=== PATIENT | female | born 1960 | race Caucasian/White ===

== ENCOUNTER → 2020-04-23 | Outpatient (CLI) | payer MEDICAID ==
[~2020-04-23] MED LIST: AGM875T PO; ASP81TEC PO; CALC500T7 PO; CALC667C; CHOL200018 PO; CHOL500011 PO; CPR500T PO; FISH1CAP15 PO; HYDR25TA4 PO; LORA10TA7 PO; NAPR-689 PO; TLT2T PO; TRAM-21 PO; [UNRECOGNIZED DRUG - REMARK]; oscal; vitamin e
--- NOTE | 2020-04-23 11:41 | Diagnostic Imaging Report ---
EXAMINATION: Chest 2 views. HISTORY: Fall. Left-sided rib pain. Shortness of breath. COMPARISON: 07/20/2014. FINDINGS: The lung volumes are normal. No focal consolidation is seen. No large pleural effusion or pneumothorax is seen. The cardiomediastinal silhouette is normal in size and contour. No acute osseous abnormality is seen. IMPRESSION: 1. No acute pleuroparenchymal process. Dictated by: Dictated on workstation # [id number]
--- NOTE | 2020-04-23 11:44 | Diagnostic Imaging Report ---
CLINICAL HISTORY: Fall. Left-sided rib pain. COMPARISON: 07/20/2014. TECHNIQUE: Three views of the left ribs. FINDINGS: No acute displaced left-sided rib fractures are seen. No evidence of pneumothorax or pleural effusion. IMPRESSION: 1. No acute displaced left-sided rib fractures. Dictated by: Dictated on workstation # [id number]
== END ==
LOC: RAD 10:35
PROVIDERS: ATTEND Nurse Practitioner
DX: R07.81 Pleurodynia (principal); R06.02 Shortness of breath
CPT/HCPCS: 71046; 71100

== ENCOUNTER → 2020-04-24 | Outpatient (CLI) | payer MEDICAID | LOC: LABNPT 08:09 | PROVIDERS: ATTEND Nurse Practitioner | DX: R50.9 Fever, unspecified (principal); R53.83 Other fatigue; Z20.828 Contact with and (suspected) exposure to other viral communicable diseases | CPT/HCPCS: 87635 ==

== ENCOUNTER 2020-06-21 10:46 | Outpatient (RCR) | payer MEDICAID | END 2020-06-25 | disposition home or self-care (01) | PROVIDERS: ATTEND Nurse Practitioner | DX: R53.81 Other malaise (principal) ==

== ENCOUNTER 2020-07-23 13:45 | Outpatient (RCR) | payer MEDICAID ==
[2020-06-26 09:59] LABS: BASOPHILS % (AUTO) 1 % (0-10); EOSINOPHILS # (AUTO) 0.1 10^3/uL (0.0-0.3); EOSINOPHILS % (AUTO) 2 % (0-10); HEMATOCRIT 35 % (35-52); HEMOGLOBIN 11.6 g/dL (11.5-16.0); LYMPHOCYTES # (AUTO) 1.4 10^3/uL (1.0-4.0); LYMPHOCYTES % (AUTO) 28 % (12-44); MEAN CORPUSCULAR HEMOGLOBIN 30 pg (25-34); MEAN CORPUSCULAR HGB CONC 33 g/dL (32-36); MEAN CORPUSCULAR VOLUME 91 fL (80-99); MONOCYTES # (AUTO) 0.3 10^3/uL (0.0-1.0); MONOCYTES % (AUTO) 6 % (0-12); NEUTROPHILS # (AUTO) 3.2 10^3/uL (1.8-7.8); NEUTROPHILS % (AUTO) 63 % (42-75); PLATELET COUNT 202 10^3/uL (130-400)
[2020-06-26 10:14] LABS: ALANINE AMINOTRANSFERASE 13 U/L (0-55); ALBUMIN 3.6 GM/DL (3.2-4.5); ALKALINE PHOSPHATASE 96 U/L (40-136); BILIRUBIN,TOTAL 0.4 MG/DL (0.1-1.0); BUN/CREATININE RATIO 10; CALCIUM 8.4 MG/DL (8.5-10.1); CARBON DIOXIDE 25 MMOL/L (21-32); CHLORIDE 109 MMOL/L (98-107); CREATININE SERUM 0.84 MG/DL (0.60-1.30); GFR ESTIMATED > 60; GLUCOSE 104 MG/DL (70-105); POTASSIUM 3.5 MMOL/L (3.6-5.0); SODIUM 143 MMOL/L (135-145); TOTAL PROTEIN 6.2 GM/DL (6.4-8.2)
[2020-07-23 13:47] LABS: BASOPHILS % (AUTO) 1 % (0-10); EOSINOPHILS # (AUTO) 0.1 10^3/uL (0.0-0.3); EOSINOPHILS % (AUTO) 1 % (0-10); HEMATOCRIT 35 % (35-52); HEMOGLOBIN 11.8 g/dL (11.5-16.0); LYMPHOCYTES % (AUTO) 33 % (12-44); MEAN CORPUSCULAR HEMOGLOBIN 30 pg (25-34); MEAN CORPUSCULAR HGB CONC 34 g/dL (32-36); MEAN CORPUSCULAR VOLUME 90 fL (80-99); MEAN PLATELET VOLUME 11.4 fL (9.0-12.2); MONOCYTES # (AUTO) 0.4 10^3/uL (0.0-1.0); MONOCYTES % (AUTO) 7 % (0-12); NEUTROPHILS # (AUTO) 3.4 10^3/uL (1.8-7.8); NEUTROPHILS % (AUTO) 58 % (42-75); PLATELET COUNT 222 10^3/uL (130-400); WHITE BLOOD COUNT 5.9 10^3/uL (4.3-11.0)
[2020-07-23 14:05] LABS: ALANINE AMINOTRANSFERASE 23 U/L (0-55); ALBUMIN 3.6 GM/DL (3.2-4.5); ALKALINE PHOSPHATASE 93 U/L (40-136); BILIRUBIN,TOTAL 0.3 MG/DL (0.1-1.0); BUN/CREATININE RATIO 14; CALCIUM 8.3 MG/DL (8.5-10.1); CARBON DIOXIDE 23 MMOL/L (21-32); CHLORIDE 110 MMOL/L (98-107); GFR ESTIMATED > 60; GLUCOSE 120 MG/DL (70-105); POTASSIUM 3.6 MMOL/L (3.6-5.0); SODIUM 142 MMOL/L (135-145); TOTAL PROTEIN 6.3 GM/DL (6.4-8.2)
== END 2020-08-25 | disposition home or self-care (01) ==
LOC: ONC 13:45
PROVIDERS: ATTEND Internal Medicine Hematology & Oncology
DX: C71.2 Malignant neoplasm of temporal lobe (principal); I10 Essential (primary) hypertension; E78.00 Pure hypercholesterolemia, unspecified; Z98.890 Other specified postprocedural states; Z90.711 Acquired absence of uterus with remaining cervical stump
CPT/HCPCS: 80053; 85025; 99213; 99214

== ENCOUNTER → 2020-07-29 | Outpatient (CLI) | payer MEDICAID ==
[~2020-07-29] MED LIST changes: +GADOBUTROL 10 MMOL/10 ML (GADAVIST) VIAL IV ONE
--- NOTE | 2020-07-29 12:39 | Diagnostic Imaging Report ---
PROCEDURE: MR imaging of the brain with and without contrast. TECHNIQUE: Multiplanar, multisequence MR imaging of the brain was performed with and without contrast. INDICATION: History of brain tumor resection 08/01/2019. No other details are provided. COMPARISON: None. FINDINGS: There are postoperative findings right temporal craniotomy and resection bed in the anterior right temporal lobe. Abnormal T2 signal extends from the postoperative changes into the posterior right frontal lobe and to the splenium of the corpus callosum. There is no suspicious nodular enhancement in the region of the postoperative changes. There is a punctate focus of enhancement in the posterior right temporal lobe measuring 0.2 cm. No other abnormal intracranial enhancement. Mild to moderate generalized cerebral and cerebellar parenchymal volume loss. No restricted water diffusion. No hemosiderin deposition or evidence of intracranial hemorrhage. Normal morphology of the major midline structures, sella, fossa and cerebellar pontine angle. Normal intracranial flow voids. No hydrocephalus or extra-axial fluid collections. The orbits are negative on this nondedicated exam. Paranasal sinuses and mastoids are clear. IMPRESSION: Postoperative findings of right temporal craniotomy and resection bed in the anterior right temporal lobe. Abnormal T2 signal extends in the posterior right frontal lobe and to the splenium of the corpus callosum. Single punctate focus of enhancement in the posterior right temporal lobe measuring 0.2 cm. No priors are available for comparison. Pathology of the reported resected brain tumor was not provided. Dictated by: Dictated on workstation # [id number]
== END ==
LOC: RAD 11:00
PROVIDERS: ATTEND Nurse Practitioner Adult Health
DX: C71.9 Malignant neoplasm of brain, unspecified (principal)
CPT/HCPCS: 70553

== ENCOUNTER 2020-09-24 10:57 | Outpatient (RCR) | payer MEDICAID ==
[~2020-09-24 10:57] MED LIST changes: -GADOBUTROL 10 MMOL/10 ML (GADAVIST) VIAL IV ONE
== END 2020-09-25 | disposition home or self-care (01) ==
PROVIDERS: ATTEND Nurse Practitioner
DX: R53.81 Other malaise (principal); C71.9 Malignant neoplasm of brain, unspecified

== ENCOUNTER 2020-09-26 10:22 | Outpatient (RCR) | payer MEDICAID | END 2020-09-26 12:00 | disposition home or self-care (01) | PROVIDERS: ATTEND Nurse Practitioner | DX: R53.81 Other malaise (principal); C71.9 Malignant neoplasm of brain, unspecified ==

== ENCOUNTER 2020-10-04 13:27 | Outpatient (RCR) | payer MEDICAID | END 2020-11-03 | disposition home or self-care (01) | LOC: CR3 13:27 | PROVIDERS: ATTEND Nurse Practitioner | DX: Z29.8 Encounter for other specified prophylactic measures (principal) ==

== ENCOUNTER → 2020-10-15 | Outpatient (CLI) | payer MEDICAID ==
[~2020-10-15] MED LIST changes: +GADOBUTROL 10 MMOL/10 ML (GADAVIST) VIAL IV ONE
--- NOTE | 2020-10-15 17:41 | Diagnostic Imaging Report ---
PROCEDURE: MR imaging of the brain with and without contrast. TECHNIQUE: Multiplanar, multisequence MR imaging of the brain was performed with and without contrast. INDICATION: Previous brain tumor resection. This is a scheduled follow-up with no current complaint. It is compared with exam dated 07/29/2020. FINDINGS: Some encephalomalacia in the cortex of the right temporal lobe posterosuperiorly unchanged. T2 and FLAIR weighted hyperintensity tracking along the right temporoparietal white matter identical in morphology and distribution from the prior. No resultant mass effect. No distortion of the ventricular contour. No displacement of the midline structures. No abnormal diffusion restriction. There were no findings of hemorrhage. Otherwise, there is some scattered chronic periventricular white matter small vessel sequelae stable and a tiny peripheral cortical punctate focus of T2 signal along the right occipital lobe posteriorly. On today's exam after contrast was administered no abnormal or suspicious enhancement shown. The left hemisphere unremarkable. The brainstem and posterior fossa unremarkable. The orbital contents and paranasal sinuses nonacute. IMPRESSION: 1. Stable post-therapeutic encephalomalacia and unchanged white matter hyperintensities without a resultant mass effect and no detectable infarct, hemorrhage or appreciable abnormal enhancement. Dictated by: Dictated on workstation # [id number]
== END ==
LOC: RAD 09:59
PROVIDERS: ATTEND Nurse Practitioner Adult Health
DX: C71.9 Malignant neoplasm of brain, unspecified (principal)
CPT/HCPCS: 70553

== ENCOUNTER 2020-11-19 15:05 | Outpatient (RCR) | payer MEDICAID ==
[2020-08-26 13:17] LABS: BASOPHILS % (AUTO) 1 % (0-10); EOSINOPHILS % (AUTO) 0 % (0-10); HEMATOCRIT 36 % (35-52); HEMOGLOBIN 12.1 g/dL (11.5-16.0); LYMPHOCYTES # (AUTO) 1.7 10^3/uL (1.0-4.0); LYMPHOCYTES % (AUTO) 20 % (12-44); MEAN CORPUSCULAR HEMOGLOBIN 30 pg (25-34); MEAN CORPUSCULAR HGB CONC 34 g/dL (32-36); MEAN CORPUSCULAR VOLUME 90 fL (80-99); MONOCYTES # (AUTO) 0.6 10^3/uL (0.0-1.0); MONOCYTES % (AUTO) 8 % (0-12); NEUTROPHILS % (AUTO) 71 % (42-75); PLATELET COUNT 212 10^3/uL (130-400); WHITE BLOOD COUNT 8.4 10^3/uL (4.3-11.0)
[2020-08-26 13:36] LABS: ALANINE AMINOTRANSFERASE 16 U/L (0-55); ALBUMIN 3.8 GM/DL (3.2-4.5); ALKALINE PHOSPHATASE 87 U/L (40-136); BILIRUBIN,TOTAL 0.4 MG/DL (0.1-1.0); BUN/CREATININE RATIO 11; CALCIUM 8.3 MG/DL (8.5-10.1); CARBON DIOXIDE 26 MMOL/L (21-32); CHLORIDE 108 MMOL/L (98-107); CREATININE SERUM 0.81 MG/DL (0.60-1.30); GFR ESTIMATED > 60; GLUCOSE 106 MG/DL (70-105); POTASSIUM 3.2 MMOL/L (3.6-5.0); SODIUM 142 MMOL/L (135-145); TOTAL PROTEIN 6.6 GM/DL (6.4-8.2)
[2020-09-23 13:01] LABS: BASOPHILS % (AUTO) 1 % (0-10); EOSINOPHILS % (AUTO) 1 % (0-10); HEMATOCRIT 39 % (35-52); HEMOGLOBIN 12.7 g/dL (11.5-16.0); LYMPHOCYTES # (AUTO) 1.6 10^3/uL (1.0-4.0); LYMPHOCYTES % (AUTO) 29 % (12-44); MEAN CORPUSCULAR HEMOGLOBIN 30 pg (25-34); MEAN CORPUSCULAR HGB CONC 33 g/dL (32-36); MEAN CORPUSCULAR VOLUME 90 fL (80-99); MEAN PLATELET VOLUME 11.1 fL (9.0-12.2); MONOCYTES # (AUTO) 0.3 10^3/uL (0.0-1.0); MONOCYTES % (AUTO) 6 % (0-12); NEUTROPHILS # (AUTO) 3.5 10^3/uL (1.8-7.8); NEUTROPHILS % (AUTO) 64 % (42-75); PLATELET COUNT 202 10^3/uL (130-400); WHITE BLOOD COUNT 5.5 10^3/uL (4.3-11.0)
[2020-09-23 13:25] LABS: ALANINE AMINOTRANSFERASE 16 U/L (0-55); ALBUMIN 3.9 GM/DL (3.2-4.5); ALKALINE PHOSPHATASE 89 U/L (40-136); BILIRUBIN,TOTAL 0.4 MG/DL (0.1-1.0); BUN/CREATININE RATIO 13; CALCIUM 8.7 MG/DL (8.5-10.1); CARBON DIOXIDE 26 MMOL/L (21-32); CHLORIDE 105 MMOL/L (98-107); CREATININE SERUM 0.79 MG/DL (0.60-1.30); GFR ESTIMATED > 60; GLUCOSE 104 MG/DL (70-105); POTASSIUM 3.9 MMOL/L (3.6-5.0); SODIUM 140 MMOL/L (135-145); TOTAL PROTEIN 6.5 GM/DL (6.4-8.2)
[2020-10-22 13:02] LABS: BASOPHILS % (AUTO) 1 % (0-10); EOSINOPHILS # (AUTO) 0.1 10^3/uL (0.0-0.3); EOSINOPHILS % (AUTO) 1 % (0-10); HEMATOCRIT 37 % (35-52); HEMOGLOBIN 12.2 g/dL (11.5-16.0); LYMPHOCYTES # (AUTO) 1.3 10^3/uL (1.0-4.0); LYMPHOCYTES % (AUTO) 26 % (12-44); MEAN CORPUSCULAR HEMOGLOBIN 30 pg (25-34); MEAN CORPUSCULAR HGB CONC 33 g/dL (32-36); MEAN CORPUSCULAR VOLUME 89 fL (80-99); MEAN PLATELET VOLUME 10.7 fL (9.0-12.2); MONOCYTES # (AUTO) 0.4 10^3/uL (0.0-1.0); MONOCYTES % (AUTO) 7 % (0-12); NEUTROPHILS # (AUTO) 3.4 10^3/uL (1.8-7.8); NEUTROPHILS % (AUTO) 65 % (42-75); PLATELET COUNT 216 10^3/uL (130-400); WHITE BLOOD COUNT 5.2 10^3/uL (4.3-11.0)
[2020-10-22 13:20] LABS: ALANINE AMINOTRANSFERASE 19 U/L (0-55); ALBUMIN 3.8 GM/DL (3.2-4.5); ALKALINE PHOSPHATASE 105 U/L (40-136); BILIRUBIN,TOTAL 0.3 MG/DL (0.1-1.0); BUN/CREATININE RATIO 10; CALCIUM 9.2 MG/DL (8.5-10.1); CARBON DIOXIDE 26 MMOL/L (21-32); CHLORIDE 107 MMOL/L (98-107); CREATININE SERUM 0.84 MG/DL (0.60-1.30); GFR ESTIMATED > 60; GLUCOSE 109 MG/DL (70-105); POTASSIUM 3.9 MMOL/L (3.6-5.0); SODIUM 140 MMOL/L (135-145); TOTAL PROTEIN 6.6 GM/DL (6.4-8.2)
[~2020-11-19 15:05] MED LIST changes: -GADOBUTROL 10 MMOL/10 ML (GADAVIST) VIAL IV ONE
[2020-11-19 15:19] LABS: BASOPHILS % (AUTO) 1 % (0-10); EOSINOPHILS # (AUTO) 0.1 10^3/uL (0.0-0.3); EOSINOPHILS % (AUTO) 1 % (0-10); HEMATOCRIT 34 % (35-52); HEMOGLOBIN 11.4 g/dL (11.5-16.0); LYMPHOCYTES # (AUTO) 2.2 10^3/uL (1.0-4.0); LYMPHOCYTES % (AUTO) 39 % (12-44); MEAN CORPUSCULAR HEMOGLOBIN 30 pg (25-34); MEAN CORPUSCULAR HGB CONC 34 g/dL (32-36); MEAN CORPUSCULAR VOLUME 89 fL (80-99); MEAN PLATELET VOLUME 11.4 fL (9.0-12.2); MONOCYTES # (AUTO) 0.3 10^3/uL (0.0-1.0); MONOCYTES % (AUTO) 6 % (0-12); NEUTROPHILS # (AUTO) 2.9 10^3/uL (1.8-7.8); NEUTROPHILS % (AUTO) 53 % (42-75); PLATELET COUNT 239 10^3/uL (130-400); WHITE BLOOD COUNT 5.5 10^3/uL (4.3-11.0)
[2020-11-19 15:41] LABS: ALANINE AMINOTRANSFERASE 17 U/L (0-55); ALBUMIN 3.7 GM/DL (3.2-4.5); ALKALINE PHOSPHATASE 108 U/L (40-136); BILIRUBIN,TOTAL 0.5 MG/DL (0.1-1.0); BUN/CREATININE RATIO 14; CALCIUM 8.9 MG/DL (8.5-10.1); CARBON DIOXIDE 22 MMOL/L (21-32); CHLORIDE 109 MMOL/L (98-107); GFR ESTIMATED > 60; GLUCOSE 104 MG/DL (70-105); POTASSIUM 3.5 MMOL/L (3.6-5.0); SODIUM 140 MMOL/L (135-145); TOTAL PROTEIN 6.6 GM/DL (6.4-8.2)
== END 2020-11-24 | disposition home or self-care (01) ==
LOC: ONC 15:05
PROVIDERS: ATTEND Internal Medicine Hematology & Oncology
DX: C71.2 Malignant neoplasm of temporal lobe (principal); I10 Essential (primary) hypertension; E78.00 Pure hypercholesterolemia, unspecified; F32.9 Major depressive disorder, single episode, unspecified; E78.5 Hyperlipidemia, unspecified; Z98.890 Other specified postprocedural states; Z90.711 Acquired absence of uterus with remaining cervical stump; Z79.899 Other long term (current) drug therapy; Z92.21 Personal history of antineoplastic chemotherapy
CPT/HCPCS: 80053; 85025; 87324; 87449; 99213

== ENCOUNTER → 2021-01-08 | Outpatient (CLI) | payer MEDICARE ==
[2021-01-08] MEDS: GADOBUTROL 10 MMOL/10 ML (GADAVIST) VIAL IV ONE (10:08)
--- NOTE | 2021-01-08 10:45 | Diagnostic Imaging Report ---
PROCEDURE: MR imaging of the brain with and without contrast. TECHNIQUE: Multiplanar, multisequence MR imaging of the brain was performed with and without contrast. DATE: January 08, 2021. COMPARISON: MRI brain October 15, 2020. July 29, 2020. HISTORY: 60-year-old female, history of brain tumor status post surgery in July 2019. FINDINGS: There are right-sided craniotomy changes. There is a CSF attenuation resection cavity in the right temporal lobe with adjacent T2 and FLAIR hyperintense signal. There is no diffusion restriction. There is no contrast enhancement. The overall extent of the T2 hyperintense and FLAIR signal abnormalities is unchanged since the most recent comparison exam. There is a focal area of FLAIR hyperintense signal involving the right occipital subcortical white matter which is unchanged. There is no area of abnormal intracranial enhancement. The visualized portions of the paranasal sinuses, mastoid air cells, and middle ears are well aerated. There is no hydrocephalus. IMPRESSION: 1. Redemonstrated findings of right-sided craniotomy with CSF attenuation resection cavity in the right temporal lobe. The overall extent of adjacent T2 and FLAIR hyperintense signal is unchanged. There is no contrast enhancement or diffusion restriction to specifically suggest a residual or recurrent malignancy. Dictated by: Dictated on workstation # [id number]
== END ==
LOC: RAD 10:15
PROVIDERS: ATTEND Nurse Practitioner Adult Health
DX: Z85.841 Personal history of malignant neoplasm of brain (principal)
CPT/HCPCS: 70553

== ENCOUNTER 2021-03-12 12:49 | Outpatient (RCR) | payer MEDICARE, MEDICAID ==
[2020-12-17 13:15] LABS: BASOPHILS % (AUTO) 1 % (0-10); EOSINOPHILS # (AUTO) 0.1 10^3/uL (0.0-0.3); EOSINOPHILS % (AUTO) 2 % (0-10); HEMATOCRIT 35 % (35-52); HEMOGLOBIN 11.7 g/dL (11.5-16.0); LYMPHOCYTES # (AUTO) 1.8 10^3/uL (1.0-4.0); LYMPHOCYTES % (AUTO) 30 % (12-44); MEAN CORPUSCULAR HEMOGLOBIN 30 pg (25-34); MEAN CORPUSCULAR HGB CONC 33 g/dL (32-36); MEAN CORPUSCULAR VOLUME 92 fL (80-99); MEAN PLATELET VOLUME 10.8 fL (9.0-12.2); MONOCYTES # (AUTO) 0.4 10^3/uL (0.0-1.0); MONOCYTES % (AUTO) 7 % (0-12); NEUTROPHILS # (AUTO) 3.8 10^3/uL (1.8-7.8); NEUTROPHILS % (AUTO) 61 % (42-75); PLATELET COUNT 233 10^3/uL (130-400); WHITE BLOOD COUNT 6.2 10^3/uL (4.3-11.0)
[2020-12-17 13:32] LABS: ALBUMIN 3.6 GM/DL (3.2-4.5); BILIRUBIN,TOTAL 0.3 MG/DL (0.1-1.0); CALCIUM 8.6 MG/DL (8.5-10.1); CREATININE SERUM 0.76 MG/DL (0.60-1.30); POTASSIUM 3.8 MMOL/L (3.6-5.0); TOTAL PROTEIN 6.7 GM/DL (6.4-8.2)
[2021-01-14 10:15] LABS: BASOPHILS % (AUTO) 0 % (0-10); EOSINOPHILS # (AUTO) 0.1 10^3/uL (0.0-0.3); EOSINOPHILS % (AUTO) 1 % (0-10); HEMATOCRIT 39 % (35-52); HEMOGLOBIN 12.9 g/dL (11.5-16.0); LYMPHOCYTES # (AUTO) 1.3 10^3/uL (1.0-4.0); LYMPHOCYTES % (AUTO) 23 % (12-44); MEAN CORPUSCULAR HEMOGLOBIN 30 pg (25-34); MEAN CORPUSCULAR HGB CONC 33 g/dL (32-36); MEAN CORPUSCULAR VOLUME 91 fL (80-99); MEAN PLATELET VOLUME 11.4 fL (9.0-12.2); MONOCYTES # (AUTO) 0.4 10^3/uL (0.0-1.0); MONOCYTES % (AUTO) 6 % (0-12); NEUTROPHILS # (AUTO) 3.8 10^3/uL (1.8-7.8); NEUTROPHILS % (AUTO) 69 % (42-75); PLATELET COUNT 222 10^3/uL (130-400); WHITE BLOOD COUNT 5.6 10^3/uL (4.3-11.0)
[2021-01-14 10:38] LABS: ALBUMIN 3.8 GM/DL (3.2-4.5); BILIRUBIN,TOTAL 0.4 MG/DL (0.1-1.0); CALCIUM 9.2 MG/DL (8.5-10.1); CREATININE SERUM 0.79 MG/DL (0.60-1.30); POTASSIUM 3.5 MMOL/L (3.6-5.0); TOTAL PROTEIN 6.9 GM/DL (6.4-8.2)
[2021-02-13 14:53] LABS: BASOPHILS % (AUTO) 1 % (0-10); EOSINOPHILS # (AUTO) 0.1 10^3/uL (0.0-0.3); EOSINOPHILS % (AUTO) 2 % (0-10); HEMATOCRIT 38 % (35-52); HEMOGLOBIN 12.6 g/dL (11.5-16.0); LYMPHOCYTES # (AUTO) 1.7 10^3/uL (1.0-4.0); LYMPHOCYTES % (AUTO) 29 % (12-44); MEAN CORPUSCULAR HEMOGLOBIN 30 pg (25-34); MEAN CORPUSCULAR HGB CONC 33 g/dL (32-36); MEAN CORPUSCULAR VOLUME 90 fL (80-99); MEAN PLATELET VOLUME 10.9 fL (9.0-12.2); MONOCYTES # (AUTO) 0.4 10^3/uL (0.0-1.0); MONOCYTES % (AUTO) 8 % (0-12); NEUTROPHILS # (AUTO) 3.4 10^3/uL (1.8-7.8); NEUTROPHILS % (AUTO) 60 % (42-75); PLATELET COUNT 239 10^3/uL (130-400); WHITE BLOOD COUNT 5.6 10^3/uL (4.3-11.0)
[2021-02-13 15:17] LABS: ALBUMIN 3.8 GM/DL (3.2-4.5); BILIRUBIN,TOTAL 0.4 MG/DL (0.1-1.0); CALCIUM 9.2 MG/DL (8.5-10.1); CREATININE SERUM 0.84 MG/DL (0.60-1.30); POTASSIUM 3.9 MMOL/L (3.6-5.0)
[2021-03-12 13:03] LABS: BASOPHILS % (AUTO) 1 % (0-10); EOSINOPHILS # (AUTO) 0.1 10^3/uL (0.0-0.3); EOSINOPHILS % (AUTO) 1 % (0-10); HEMATOCRIT 36 % (35-52); HEMOGLOBIN 12.1 g/dL (11.5-16.0); LYMPHOCYTES # (AUTO) 1.2 10^3/uL (1.0-4.0); LYMPHOCYTES % (AUTO) 26 % (12-44); MEAN CORPUSCULAR HEMOGLOBIN 30 pg (25-34); MEAN CORPUSCULAR HGB CONC 34 g/dL (32-36); MEAN CORPUSCULAR VOLUME 89 fL (80-99); MEAN PLATELET VOLUME 11.2 fL (9.0-12.2); MONOCYTES # (AUTO) 0.3 10^3/uL (0.0-1.0); MONOCYTES % (AUTO) 7 % (0-12); NEUTROPHILS # (AUTO) 3.1 10^3/uL (1.8-7.8); NEUTROPHILS % (AUTO) 65 % (42-75); PLATELET COUNT 224 10^3/uL (130-400); WHITE BLOOD COUNT 4.7 10^3/uL (4.3-11.0)
[2021-03-12 13:14] LABS: ALBUMIN 3.6 GM/DL (3.2-4.5); POTASSIUM 3.6 MMOL/L (3.6-5.0)
[2021-03-12 13:16] LABS: TOTAL PROTEIN 6.6 GM/DL (6.4-8.2)
[2021-03-12 13:18] LABS: BILIRUBIN,TOTAL 0.4 MG/DL (0.1-1.0)
[2021-03-12 13:20] LABS: CREATININE SERUM 0.76 MG/DL (0.60-1.30)
== END 2021-03-17 | disposition home or self-care (01) ==
LOC: ONC 12:49
PROVIDERS: ATTEND Internal Medicine Hematology & Oncology
DX: C71.2 Malignant neoplasm of temporal lobe (principal); I10 Essential (primary) hypertension; E78.00 Pure hypercholesterolemia, unspecified; E78.5 Hyperlipidemia, unspecified; Z98.890 Other specified postprocedural states; Z90.711 Acquired absence of uterus with remaining cervical stump; Z79.899 Other long term (current) drug therapy; Z92.21 Personal history of antineoplastic chemotherapy
CPT/HCPCS: 80053; 83735; 85025; G0463; 99213

== ENCOUNTER → 2021-04-08 | Outpatient (CLI) | payer MEDICARE, MEDICAID ==
[~2021-04-08] MED LIST changes: +GADOTERATE 0.5 MMOL/ML (CLARISCAN) 15 ML VIAL IV ONE
--- NOTE | 2021-04-08 14:57 | Diagnostic Imaging Report ---
PROCEDURE: MR imaging of the brain with and without contrast. TECHNIQUE: Multiplanar, multisequence MR imaging of the brain was performed with and without contrast. DATE: April 08, 2021. COMPARISON: MRI brain January 08, 2021. October 15, 2020. July 29, 2020. HISTORY: 60-year-old female, history of brain neoplasm. Followup exam. FINDINGS: There are right-sided craniotomy changes. There is a resection cavity in the right frontotemporal region with adjacent T2 and FLAIR hyperintense signal. There is no diffusion restriction. There is no abnormal intracranial enhancement. The extent of T2 and FLAIR hyperintense signal changes appears essentially unchanged since January 08, 2021. There is an additional focal area of FLAIR signal in the right occipital lobe on FLAIR sequence image 14 which is unchanged. There are additional small foci of T2 and FLAIR hyperintense signal in the periventricular and subcortical white matter, likely reflecting background findings of mild chronic small vessel ischemic disease. There is no mass effect or midline shift. There is no hydrocephalus. There is no abnormal extra-axial fluid collection. The visualized portions of the paranasal sinuses, mastoid air cells, and middle ears are well-aerated. There is preservation of normal intracranial flow voids. IMPRESSION: 1. Redemonstrated right-sided craniotomy changes with resection cavity in the right frontotemporal region with adjacent T2 and FLAIR hyperintense signal which is essentially unchanged since January 08, 2021. No diffusion restriction or contrast enhancement to specifically diagnose residual or recurrent neoplasm. 2. No otherwise identified interval acute intracranial abnormality. Dictated by: Dictated on workstation # [id number]
== END ==
LOC: RAD 11:00
PROVIDERS: ATTEND Nurse Practitioner Adult Health
DX: C71.9 Malignant neoplasm of brain, unspecified (principal); Z98.890 Other specified postprocedural states
CPT/HCPCS: 70553

== ENCOUNTER 2021-05-13 14:53 | Outpatient (RCR) | payer MEDICARE, MEDICAID ==
[2021-04-15 09:17] LABS: BASOPHILS % (AUTO) 1 % (0-10); EOSINOPHILS # (AUTO) 0.1 10^3/uL (0.0-0.3); EOSINOPHILS % (AUTO) 2 % (0-10); HEMATOCRIT 37 % (35-52); HEMOGLOBIN 12.3 g/dL (11.5-16.0); LYMPHOCYTES # (AUTO) 1.4 10^3/uL (1.0-4.0); LYMPHOCYTES % (AUTO) 26 % (12-44); MEAN CORPUSCULAR HEMOGLOBIN 29 pg (25-34); MEAN CORPUSCULAR HGB CONC 34 g/dL (32-36); MEAN CORPUSCULAR VOLUME 88 fL (80-99); MEAN PLATELET VOLUME 10.6 fL (9.0-12.2); MONOCYTES # (AUTO) 0.4 10^3/uL (0.0-1.0); MONOCYTES % (AUTO) 7 % (0-12); NEUTROPHILS # (AUTO) 3.4 10^3/uL (1.8-7.8); NEUTROPHILS % (AUTO) 64 % (42-75); PLATELET COUNT 217 10^3/uL (130-400); WHITE BLOOD COUNT 5.3 10^3/uL (4.3-11.0)
[2021-04-15 09:46] LABS: ALBUMIN 3.5 GM/DL (3.2-4.5); BILIRUBIN,TOTAL 0.5 MG/DL (0.1-1.0); CALCIUM 8.8 MG/DL (8.5-10.1); CREATININE SERUM 0.76 MG/DL (0.60-1.30); POTASSIUM 3.7 MMOL/L (3.6-5.0); TOTAL PROTEIN 6.6 GM/DL (6.4-8.2)
[~2021-05-13 14:53] MED LIST changes: -GADOTERATE 0.5 MMOL/ML (CLARISCAN) 15 ML VIAL IV ONE
[2021-05-13 15:13] LABS: BASOPHILS % (AUTO) 0 % (0-10); EOSINOPHILS % (AUTO) 0 % (0-10); HEMATOCRIT 36 % (35-52); HEMOGLOBIN 11.8 g/dL (11.5-16.0); LYMPHOCYTES # (AUTO) 1.4 10^3/uL (1.0-4.0); LYMPHOCYTES % (AUTO) 21 % (12-44); MEAN CORPUSCULAR HEMOGLOBIN 29 pg (25-34); MEAN CORPUSCULAR HGB CONC 33 g/dL (32-36); MEAN CORPUSCULAR VOLUME 89 fL (80-99); MEAN PLATELET VOLUME 10.7 fL (9.0-12.2); MONOCYTES # (AUTO) 0.5 10^3/uL (0.0-1.0); MONOCYTES % (AUTO) 7 % (0-12); NEUTROPHILS # (AUTO) 4.8 10^3/uL (1.8-7.8); NEUTROPHILS % (AUTO) 71 % (42-75); PLATELET COUNT 284 10^3/uL (130-400); WHITE BLOOD COUNT 6.8 10^3/uL (4.3-11.0)
[2021-05-13 15:34] LABS: ALBUMIN 3.5 GM/DL (3.2-4.5); BILIRUBIN,TOTAL 0.3 MG/DL (0.1-1.0); CALCIUM 8.7 MG/DL (8.5-10.1); CREATININE SERUM 0.79 MG/DL (0.60-1.30); POTASSIUM 3.7 MMOL/L (3.6-5.0); TOTAL PROTEIN 6.7 GM/DL (6.4-8.2)
== END 2021-05-16 | disposition home or self-care (01) ==
LOC: ONC 14:53
PROVIDERS: ATTEND Internal Medicine Hematology & Oncology
DX: C71.2 Malignant neoplasm of temporal lobe (principal); I10 Essential (primary) hypertension; E78.5 Hyperlipidemia, unspecified; F41.8 Other specified anxiety disorders; Z98.890 Other specified postprocedural states; Z90.711 Acquired absence of uterus with remaining cervical stump; Z79.899 Other long term (current) drug therapy; Z92.21 Personal history of antineoplastic chemotherapy
CPT/HCPCS: 80053; 85025; G0463; 99213

== ENCOUNTER 2021-08-03 06:28 | Emergency (ER) | payer MEDICARE, MEDICAID ==
[~2021-08-03] VITALS: Ht 154.9 cm; Wt 71.2 kg
[2021-08-03] MEDS ORDERED: ONDANSETRON 4 MG/2 ML (SDV) Z0FRAN IVP ONE (06:45)
[2021-08-03] MEDS ORDERED: NS IV 1000 ML 1,000 ML IV SCH (06:45)
[2021-08-03] MEDS ORDERED: fentaNYL INJ 100 MCG/2 ML AMP IVP ONE (06:45)
--- NOTE | 2021-08-03 06:48 | ED Abdominal Pain ---
General Stated Complaint: BACK PAIN, N/V Source of Information: Patient Exam Limitations: No Limitations (ARDEN COSBY MED STUDENT) History of Present Illness Date Seen by Provider: Aug 03, 2021 Time Seen by Provider: 06:35 Initial Comments Patient is a 61 year old female with history of terminal brain cancer who presents to the ED via EMS with complaints of nausea, vomiting, chills, and right sided flank pain. Reports that the pain is a 10/10 currently and is descr ibed as being constant on the right flank area with intermittent stabbing pain that is nonradiatory. She took nothing for the pain this morning. Coughing, palpation, and movement worsen the pain. Nothing seems to help the pain. She had 2 episodes of vomiting this am as well. She reports chills currently. Denies history of kidney stones. Denies chest pain, SOB, headache, hematruia, dysuria, and diarrhea. States that prior to this am she had been doing well. Follows with Dr. Saleem oncology. Timing/Duration: 1-3 Hours Severity/Quality: Mild, Moderate Location: Flank (right) Radiation: No Radiation Activities at Onset: None Modifying Factors: Improves With Movement, Improves With Palpation, Improves With Vomiting Associated Symptoms: No Chest Pain, No Diaphoresis; Fever/Chills, Nausea/Vomiting; No Shortness of Air (ARDEN COSBY MED STUDENT) Initial Comments 61yo female with acute onset of right flank pain at 3am. 2 episodes of nausea with vomiting. has had some diarrhea. NO F/C. Has taken nothing for the pain. States similar pain with pneumonia in the past however no reported fevers, SOB, cough. She feels chilled. No history of kidney stones. No hematuria or dark urine. No dysuria. no black or bloody stools. Rated pain a "10" at presentation. All other ROS reviewed and negative except as stated. (CODI TIERNEY MD) Allergies and Home Medications Allergies Coded Allergies: NKANo Known Allergies (Unverified Allergy, Mild, 12/21/08) Patient Home Medication List Home Medication List Reviewed: Yes (CODI TIERNEY MD) Aspirin (Aspirin Ec 81 Mg) 81 Mg Tabec, 81 MG PO DAILY, (Reported) Entered as Reported by: DEVEN CHONG on 03/12/11 0949 Calcium Carbonate (Tums) 200 Mg Tab.chew, 400 MG PO BID PRN for ACID REFLUX, (Reported) Entered as Reported by: HEATHER DE SOUZA on 07/18/14 1135 Cholecalciferol (Vitamin D3) (Dialyvite Vitamin D) 5,000 Unit Capsule, 5,000 UNIT PO DAILY, (Reported) Entered as Reported by: HEATHER DE SOUZA on 07/18/14 113 Fish Oil/Dha/Epa (Fish Oil 1,200 Mg Fish Oil) 1 Each Capsule, 1,200 MG PO DAILY, (Reported) Entered as Reported by: HEATHER DE SOUZA on 07/18/14 113 Hydrochlorothiazide (Hydrochlorothiazide) 25 Mg Tablet, 25 MG PO DAILY, (Reported) Entered as Reported by: HEATHER DE SOUZA on 07/18/14 113 Loratadine (Loratadine) 10 Mg Tablet, 10 MG PO HS, (Reported) Entered as Reported by: HEATHER DE SOUZA on 07/18/14 113 Naproxen (Naproxen) 500 Mg Tablet, 500 MG PO BID, (Reported) Entered as Reported by: HEATHER DE SOUZA on 07/18/14 113 Tolterodine Tartrate (Detrol 2 Mg Tab) 2 Mg Tab, 2 MG PO BID, (Reported) Entered as Reported by: HEATHER DE SOUZA on 07/18/14 113 Tramadol Hcl (Ultram) 50 Mg Tablet, 50 MG PO Q4H Prescribed by: JOSELYN GARCIA on 07/20/14 1235 Review of Systems Review of Systems Constitutional: chills; No diaphoresis, No dizziness, No fever EENTM: No Symptoms Reported; No Blurred Vision, No Double Vision Respiratory: No Symptoms Reported; Denies Cough, Denies Shortness of Air Cardiovascular: No Symptoms Reported; Denies Chest Pain, Denies Edema, Denies Palpitations Gastrointestinal: Denies Abdomen Distended, Denies Abdominal Pain, Denies Blood Streaked Stools, Denies Diarrhea; Nausea, Vomiting Genitourinary: Denies Burning, Denies Discharge, Denies Drainage; Flank Pain (right sided); Denies Hematuria Musculoskeletal: no symptoms reported; No back pain, No joint pain, No joint swelling Skin: no symptoms reported; No change in color, No change in hair/nails Psychiatric/Neurological: No Symptoms Reported; Denies Anxiety, Denies Depressed Endocrine: No Symptoms Reported; Denies Excessive Sweating, Denies Flushing Hematologic/Lymphatic: No Symptoms Reported; Denies Easy Bleeding, Denies Easy Bruising (ARDEN COSBY STUDENT) Constitutional: chills Cardiovascular: No Symptoms Reported Gastrointestinal: No Symptoms Reported Genitourinary: No Symptoms Reported Musculoskeletal: other (right flank pain) Skin: no symptoms reported Psychiatric/Neurological: No Symptoms Reported (CODI TIERNEY MD) All Other Systems Reviewed Negative Unless Noted: Yes (ARDEN COSBY) Negative Unless Noted: Yes (CODI TIERNEY MD) Past Veiqgml-Dguwva-Vfxgvz Hx Patient Social History Tobacco Use?: No Smoking Status: Never a Smoker Smokeless Tobacco Frequency: Never a User Use of E-Cig and/or Vaping dev: No Use of E-Cig and/or Vaping Brian: Never a User Substance use?: No Alcohol Use?: No (ARDEN COSBY) Seasonal Allergies Seasonal Allergies: Yes (ARDEN COSBY) Past Medical History Surgeries: Yes (Brain mass resection) Bladder Surgery, Cardiac, Hysterectomy, Orthopedic Respiratory: No Cardiac: Yes High Cholesterol, Hypertension, Valvular Heart Disease Brain Tumor Reproductive Disorders: No [employer] AND [employer] History: Hysterectomy Genitourinary: No Gastrointestinal: Yes Gastroesophageal Reflux Musculoskeletal: Yes Osteoporosis, Fractures Endocrine: No HEENT: No Loss of Vision: Denies Hearing Impairment: Denies Cancer: Yes Brain, Skin Did You Recieve Any Treatments: Yes What Type of Treatment Did You: Chemotherapy, Radiation Psychosocial: No Integumentary: No Blood Disorders: No Adverse Reaction/Blood Tranf: No (ARDEN COSBY) Physical Exam Vital Signs Vital Signs - First Documented 08/03/21 06:28 Temp 36.7 Pulse 62 Resp 18 B/P (MAP) 128/78 (95) Pulse Ox 98 O2 Delivery Room Air (CODI TIERNEY MD) Vital Signs Capillary Refill : (ARDEN COSBY STUDENT) Height/Weight/BMI Height: 5'0" Weight: 200lbs. oz. [id number]; BMI Method:Stated General Appearance: WD/WN, no apparent distress HEENT: PERRL/EOMI, pharynx normal Neck: non-tender, full range of motion, normal inspection Respiratory: chest non-tender, lungs clear, normal breath sounds, no respiratory distress Cardiovascular: normal peripheral pulses, no edema, bradycardia Peripheral Pulses: 2+ Radial Pulses (R), 2+ Radial Pulses (L) Gastrointestinal: normal bowel sounds, soft; No tenderness Rectal: deferred Extremities: normal range of motion, non-tender, no pedal edema, no calf tenderness Back: no vertebral tenderness, CVA tenderness (R) Neurologic/Psychiatric: no motor/sensory deficits, alert, oriented x 3 Skin: normal color, warm/dry Lymphatic: no adenopathy (Head and Neck) (ARDEN COSBY MED STUDENT) General Appearance: WD/WN, no apparent distress HEENT: PERRL/EOMI Respiratory: lungs clear, normal breath sounds, no respiratory distress, no accessory muscle use Cardiovascular: normal peripheral pulses, regular rate, rhythm, no edema Gastrointestinal: soft, other (patient manifests tenderness to the right flank to palpation - mild CVA on the right. Not impressive. No overlying rashes to the skin of the right flank.) Extremities: normal range of motion, non-tender, no pedal edema Neurologic/Psychiatric: no motor/sensory deficits, alert Skin: normal color, warm/dry (CODI TIERNEY MD) Progress/Results/Core Measures Results/Orders Lab Results Laboratory Tests Test 08/03/21 06:45 08/03/21 06:50 Range/Units White Blood Count 8.2 4.3-11.0 10^3/uL Red Blood Count 4.05 3.80-5.11 10^6/uL Hemoglobin 12.3 11.5-16.0 g/dL Hematocrit 36 35-52 % Mean Corpuscular Volume 89 80-99 fL Mean Corpuscular Hemoglobin 30 25-34 pg Mean Corpuscular Hemoglobin Concent 34 32-36 g/dL Red Cell Distribution Width 12.7 10.0-14.5 % Platelet Count 228 130-400 10^3/uL Mean Platelet Volume 10.3 9.0-12.2 fL Immature Granulocyte % (Auto) 1 % Neutrophils (%) (Auto) 77 H 42-75 % Lymphocytes (%) (Auto) 15 12-44 % Monocytes (%) (Auto) 5 0-12 % Eosinophils (%) (Auto) 1 0-10 % Basophils (%) (Auto) 1 0-10 % Neutrophils # (Auto) 6.3 1.8-7.8 10^3/uL Lymphocytes # (Auto) 1.3 1.0-4.0 10^3/uL Monocytes # (Auto) 0.4 0.0-1.0 10^3/uL Eosinophils # (Auto) 0.1 0.0-0.3 10^3/uL Basophils # (Auto) 0.0 0.0-0.1 10^3/uL Immature Granulocyte # (Auto) 0.1 0.0-0.1 10^3/uL Sodium Level 140 135-145 MMOL/L Potassium Level 3.2 L 3.6-5.0 MMOL/L Chloride Level 107 98-107 MMOL/L Carbon Dioxide Level 19 L 21-32 MMOL/L Anion Gap 14 5-14 MMOL/L Blood Urea Nitrogen 11 7-18 MG/DL Creatinine 0.81 0.60-1.30 MG/DL Estimat Glomerular Filtration Rate 82 BUN/Creatinine Ratio 14 Glucose Level 116 H 70-105 MG/DL Calcium Level 8.8 8.5-10.1 MG/DL Urine Color YELLOW Urine Clarity CLEAR Urine pH 6.0 5-9 Urine Specific [place] 1.020 1.016-1.022 Urine Protein NEGATIVE NEGATIVE Urine Glucose (UA) NEGATIVE NEGATIVE Urine Ketones NEGATIVE NEGATIVE Urine Nitrite NEGATIVE NEGATIVE Urine Bilirubin NEGATIVE NEGATIVE Urine Urobilinogen 0.2 < = 1.0 MG/DL Urine Leukocyte Esterase NEGATIVE NEGATIVE Urine RBC (Auto) NEGATIVE NEGATIVE Urine RBC NONE /HPF Urine WBC NONE /HPF Urine Squamous Epithelial Cells RARE /HPF Urine Crystals NONE /LPF Urine Bacteria NEGATIVE /HPF Urine Casts NONE /LPF Urine Mucus NEGATIVE /LPF Urine Culture Indicated NO (CODI TIERNEY MD) Micro Results Microbiology 08/03/21 Blood Culture - Preliminary, Resulted No growth (CODI TIERNEY MD) My Orders Orders - CODI TIERNEY MD Ed Iv/Invasive Line Start (08/03/21 06:41) Cbc With Automated Diff (08/03/21 06:41) Basic Metabolic Panel (08/03/21 06:41) Ua Culture If Indicated (08/03/21 06:41) Ns Iv 1000 Ml (Sodium Chloride 0.9%) (08/03/21 06:45) Fentanyl Inj (Sublimaze Injection) (08/03/21 06:45) Ondansetron Injection (Zofran Injectio (08/03/21 06:45) Abdomen/Kub 1view (08/03/21 07:04) Ct Abd/Pelvis Wo(Kidney Stone) (08/03/21 07:04) Blood Culture (08/03/21 18:45) (CODI TIERNEY MD) Medications Given in ED (CODI TIERNEY MD) Vital Signs/I&O 08/03/21 08/03/21 06:28 09:48 Temp 36.7 Pulse 62 82 Resp 18 16 B/P (MAP) 128/78 (95) 109/58 Pulse Ox 98 98 O2 Delivery Room Air Room Air (CODI TIERNEY MD) Progress Progress Note : Time: 08:35 Progress Note Patient re-evaluated. Is completely pain free at this time. CT does not show any evidence for kidney stone. There was some sludge vs possible small stones in the gallbladder - correlation to labs and physical exam recc. Patient has absolutely no RUQ pain/discomfort. I did not get LFT due to no pain in RUQ area. Rest of her exam/labs/imaging reassuring. Will send her home with 24hr return precautions. She is comfortable with this plan of care. Followup with PCP also recommended. (CODI TIERNEY MD) Diagnostic Imaging Diagonstic Imaging: Xray Comments [facility], [place] NAME: CARI HOOKS [employer] [facility] REC#: [id number] PT STATUS: REG ER : 1960 PHYSICIAN: CODI TIERNEY MD ADMIT DATE: 08/03/21/ER Draft Date of Exam:08/03/21 ABDOMEN/KUB 1VIEW INDICATION: Right flank pain COMPARISON: Imaging from the same date TECHNIQUE: Single radiograph of abdomen dated 08/03/2021. FINDINGS: No dilated loops of bowel. No differential air-fluid levels. No free air. No suspicious calcifications overlying the right or left renal shadows. Phleboliths within the lower pelvis. No acute osseous abnormality. IMPRESSION: No acute abnormality identified. Dictated on workstation # [id number] Dict: 08/03/21 0756 Trans: 08/03/21 0757 CV [id number] Interpreted by: JOSEPH MORENO MD Electronically signed by: [facility]: CT [facility] [place] [place] NAME: CARI HOOKS REC#: [id number] PT STATUS: REG ER : 1960 PHYSICIAN: CODI TIERNEY MD ADMIT DATE: 08/03/21/ER Draft Date of Exam:08/03/21 CT ABD/PELVIS WO(KIDNEY STONE) PROCEDURE: CT urinary tract, rule out kidney stone. TECHNIQUE: Multiple contiguous axial images were obtained through the abdomen and pelvis without the use of intravenous contrast. Auto Exposure Controls were utilized during the CT exam to meet ALARA standards for radiation dose reduction. INDICATION: Flank pain, renal stones COMPARISON: Radiographs from same date FINDINGS: The visualized lung bases are clear. The unenhanced liver is unremarkable. A few calcified splenic granuloma are present. The spleen is at the upper limits of normal in size. The adrenal glands are unremarkable. The unenhanced pancreas is unremarkable. Minimal layering densities are suggested within the gallbladder. Additionally, the gallbladder is at the upper limits of normal in size with questionable gallbladder wall thickening. The right kidney and right ureter are unremarkable. Left renal hypo and isodensities are present, not completely evaluated on this examination. No evidence of left-sided hydroureteronephrosis. Mild vascular calcifications within abdominal aorta and its branch vessels without aneurysmal dilatation of the abdominal aorta. The appendix is unremarkable. The urinary bladder is unremarkable. The uterus is not visualized, likely surgically absent. No abnormal adnexal mass lesion. No bowel obstruction or pneumatosis. No significant adenopathy, free air, or free fluid within the abdomen or pelvis. Minimal scattered osseous degenerative changes without acute osseous abnormality. IMPRESSION: Minimal sludge and/or stones within the gallbladder. There is questionable mural thickening of the gallbladder. Therefore, acute cholecystitis cannot be excluded on this exam. If there is clinical concern for acute cholecystitis, a right upper quadrant ultrasound would be recommended. Left renal hypo and isoechoic densities, incompletely evaluated on this examination. Statistically these likely relate to cysts, though technically indeterminate on this exam. Renal ultrasound versus contrast enhanced CT would help to further evaluate. Additional findings as above. Dictated on workstation # [id number] Dict: 08/03/21 0749 Trans: 08/03/21 0759 [facility] [id number] Interpreted by: JOSEPH MORENO MD Electronically signed by: (CODI TIERNEY MD) Departure Impression Primary Impression: Right flank pain Disposition: 01 HOME, SELF-CARE Condition: Improved Departure-Patient Inst. Decision time for Depature: 08:38 (CODI TIERNEY MD) Referrals: NO,LOCAL PHYSICIAN (PCP) Primary Care Physician STACIA HOOKS APRN (Family) Primary Care Physician Patient Instructions: Nausea and Vomiting, Adult (DC) Add. Discharge Instructions: Follow a clear liquid diet this morning. You can slowly advance your diet as tolerated this evening. Tylenol 2 extra strength tablets as needed for pain. If you have a return of severe pain, especially with fever, persistent vomiting or any other emergent, concerning symptoms, please come back to the Emergency Department for re- evaluation. Follow up with your primary care physician. Verification and Attestation of Medical Student E/M Service A medical student performed and documented this service in my presence. I reviewed and verified all information documented by the medical student and made modifications to such information, when appropriate. I personally performed the physical exam and medical decision making. Codi Tierney, Aug 05, 2021,23:14 (CODI TIERNEY MD) ARDEN COSBY MED STUDENT Aug 03, 2021 06:47 CODI TIERNEY MD Aug 03, 2021 07:17
[2021-08-03 06:56] LABS: BASOPHILS % (AUTO) 1 % (0-10); EOSINOPHILS # (AUTO) 0.1 10^3/uL (0.0-0.3); EOSINOPHILS % (AUTO) 1 % (0-10); HEMATOCRIT 36 % (35-52); HEMOGLOBIN 12.3 g/dL (11.5-16.0); LYMPHOCYTES # (AUTO) 1.3 10^3/uL (1.0-4.0); LYMPHOCYTES % (AUTO) 15 % (12-44); MEAN CORPUSCULAR HEMOGLOBIN 30 pg (25-34); MEAN CORPUSCULAR HGB CONC 34 g/dL (32-36); MEAN CORPUSCULAR VOLUME 89 fL (80-99); MEAN PLATELET VOLUME 10.3 fL (9.0-12.2); MONOCYTES # (AUTO) 0.4 10^3/uL (0.0-1.0); MONOCYTES % (AUTO) 5 % (0-12); NEUTROPHILS # (AUTO) 6.3 10^3/uL (1.8-7.8); NEUTROPHILS % (AUTO) 77 % (42-75); PLATELET COUNT 228 10^3/uL (130-400); WHITE BLOOD COUNT 8.2 10^3/uL (4.3-11.0)
[2021-08-03 07:01] LABS: BILIRUBIN,URINE NEGATIVE (NEGATIVE); CLARITY,URINE CLEAR; COLOR,URINE YELLOW; GLUCOSE, URINE (UA) NEGATIVE (NEGATIVE); KETONES,URINE NEGATIVE (NEGATIVE); LEUKOCYTE ESTERASE ,URINE NEGATIVE (NEGATIVE); NITRITE,URINE NEGATIVE (NEGATIVE); PROTEIN,URINE NEGATIVE (NEGATIVE)
[2021-08-03 07:06] LABS: BACTERIA,URINE NEGATIVE /HPF; SQUAMOUS EPITHELIAL CELL,UR RARE /HPF
[2021-08-03 07:17] LABS: POTASSIUM 3.2 MMOL/L (3.6-5.0)
[2021-08-03 07:18] LABS: CALCIUM 8.8 MG/DL (8.5-10.1)
[2021-08-03 07:23] LABS: CREATININE SERUM 0.81 MG/DL (0.60-1.30)
--- NOTE | 2021-08-03 07:58 | Diagnostic Imaging Report ---
INDICATION: Right flank pain COMPARISON: Imaging from the same date TECHNIQUE: Single radiograph of abdomen dated 08/03/2021. FINDINGS: No dilated loops of bowel. No differential air-fluid levels. No free air. No suspicious calcifications overlying the right or left renal shadows. Phleboliths within the lower pelvis. No acute osseous abnormality. IMPRESSION: No acute abnormality identified. Dictated by: Dictated on workstation # [id number]
--- NOTE | 2021-08-03 07:59 | Diagnostic Imaging Report ---
PROCEDURE: CT urinary tract, rule out kidney stone. TECHNIQUE: Multiple contiguous axial images were obtained through the abdomen and pelvis without the use of intravenous contrast. Auto Exposure Controls were utilized during the CT exam to meet ALARA standards for radiation dose reduction. INDICATION: Flank pain, renal stones COMPARISON: Radiographs from same date FINDINGS: The visualized lung bases are clear. The unenhanced liver is unremarkable. A few calcified splenic granuloma are present. The spleen is at the upper limits of normal in size. The adrenal glands are unremarkable. The unenhanced pancreas is unremarkable. Minimal layering densities are suggested within the gallbladder. Additionally, the gallbladder is at the upper limits of normal in size with questionable gallbladder wall thickening. The right kidney and right ureter are unremarkable. Left renal hypo and isodensities are present, not completely evaluated on this examination. No evidence of left-sided hydroureteronephrosis. Mild vascular calcifications within abdominal aorta and its branch vessels without aneurysmal dilatation of the abdominal aorta. The appendix is unremarkable. The urinary bladder is unremarkable. The uterus is not visualized, likely surgically absent. No abnormal adnexal mass lesion. No bowel obstruction or pneumatosis. No significant adenopathy, free air, or free fluid within the abdomen or pelvis. Minimal scattered osseous degenerative changes without acute osseous abnormality. IMPRESSION: Minimal sludge and/or stones within the gallbladder. There is questionable mural thickening of the gallbladder. Therefore, acute cholecystitis cannot be excluded on this exam. If there is clinical concern for acute cholecystitis, a right upper quadrant ultrasound would be recommended. Left renal hypo and isoechoic densities, incompletely evaluated on this examination. Statistically these likely relate to cysts, though technically indeterminate on this exam. Renal ultrasound versus contrast enhanced CT would help to further evaluate. Additional findings as above. Dictated by: Dictated on workstation # [id number]
[2021-08-03 09:48] VITALS: BP 109/58
== END 2021-08-03 09:48 | disposition home or self-care (01) ==
LOC: EDUNIT# 06:28 → ER 06:30
DX: R10.9 Unspecified abdominal pain (principal)
CPT/HCPCS: 36415; 74018; 74176; 80048; 81000; 85025; 87040

== ENCOUNTER → 2021-08-26 | Outpatient (CLI) | payer MEDICARE, MEDICAID ==
--- NOTE | 2021-08-26 09:27 | Diagnostic Imaging Report ---
PROCEDURE: US Gallbladder. TECHNIQUE: Multiple real-time grayscale images were obtained over the right upper quadrant in various projections. INDICATION: Back pain with nausea and vomiting. FINDINGS: Liver parenchyma appears normal. Liver measures 18 cm in long axis. Bile ducts are not dilated. Common duct is obscured by bowel gas. Intrahepatic radicles are not dilated. The gallbladder does show some sludge layering. No acoustical shadowing stones are seen. Gallbladder wall is upper limits of normal in thickness at 3 mm. No pericholecystic fluid noted. The pancreas appears normal. The aorta measures 1.9 cm. The IVC is 2 cm. Right kidney measures 8.6 x 5 x 4.3 cm. There is no ascites. Negative Hoffman sign. IMPRESSION: 1. There is considerable sludge layering in the gallbladder with gallbladder wall thickness upper limits of normal. The intrahepatic radicles are not dilated. Dictated by: Dictated on workstation # [id number]
== END ==
LOC: RAD 08:00
PROVIDERS: ATTEND Surgery
DX: M54.9 Dorsalgia, unspecified (principal); R11.2 Nausea with vomiting, unspecified
CPT/HCPCS: 76705

== ENCOUNTER 2021-09-25 09:30 | Outpatient (RCR) | payer MEDICARE, MEDICAID | END 2021-10-14 | disposition home or self-care (01) | LOC: CARD 09:30 | PROVIDERS: ATTEND Internal Medicine Cardiovascular Disease | DX: I08.0 Rheumatic disorders of both mitral and aortic valves (principal); I10 Essential (primary) hypertension; I25.10 Atherosclerotic heart disease of native coronary artery without angina pectoris; I49.9 Cardiac arrhythmia, unspecified | CPT/HCPCS: 93306 ==

== ENCOUNTER → 2021-10-27 | Outpatient (CLI) | payer MEDICARE, MEDICAID ==
[~2021-10-27] VITALS: Ht 154 cm; Wt 72.0 kg
[~2021-10-27] MED LIST changes: +CATHETER FLUSH 10 ML SYR IVP PRN; +REGADENOSON 0.4 MG/5 ML SYR (LEXISCAN) IV ONE
[2021-10-27 09:01] VITALS: BP 137/81
== END ==
LOC: CARD 08:00
PROVIDERS: ATTEND Internal Medicine Cardiovascular Disease
DX: I10 Essential (primary) hypertension (principal); I25.10 Atherosclerotic heart disease of native coronary artery without angina pectoris; I49.9 Cardiac arrhythmia, unspecified
CPT/HCPCS: 78452; 93017; A9502